=== PATIENT | female | born 1945 | race Caucasian/White ===

== ENCOUNTER 2022-10-30 08:40 | Emergency (ER) | payer OTHER ==
--- NOTE | 2022-10-30 09:02 | RAD REPORT ---
EXAM DESCRIPTION: CT - Head Brain Wo Cont - 10/30/2022 8:55 am CLINICAL HISTORY: Head injury status post fall COMPARISON: None TECHNIQUE: Computed axial tomography of the head was obtained. IV contrast was not requested. All CT scans are performed using dose optimization technique as appropriate and may include automated exposure control or mA/KV adjustment according to patient size. FINDINGS: Large area of cystic encephalomalacia right cerebrum No acute intracranial bleed. The ventricles are normal in caliber No extra-axial fluid collection is noted. Mild low-density areas within periventricular, deep and subcortical white matter likely represent isc hemic changes secondary to small vessel disease. Fluid within the sinuses/ mastoids is not seen. IMPRESSION: No acute intracranial abnormality is seen If patient's symptoms persist MRI of the brain would be recommended
--- NOTE | 2022-10-30 09:54 | RAD REPORT ---
EXAM DESCRIPTION: RAD - Pelvis - 10/30/2022 9:46 am CLINICAL HISTORY: Pelvic pain status post injury FINDINGS: No fracture or dislocation is seen. Osteoporosis Visualized left hip prosthesis is in good position If the patient continues to have symptoms to suggest an occult fracture then MRI would be recommended
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
[2022-10-30 10:56] VITALS: TEMP 97.9
[2022-10-30 10:59] VITALS: BP 120/77; O2SAT 97
== END 2022-10-30 10:51 | disposition home or self-care (01) ==
LOC: ER 08:40
DX: Z04.3 Encounter for examination and observation following other accident (principal); W18.30XA Fall on same level, unspecified, initial encounter; F03.90 Unspecified dementia, unspecified severity, without behavioral disturbance, psychotic disturbance, mood disturbance, and anxiety
CPT/HCPCS: 70450; 72170; 99283

== ENCOUNTER 2023-07-07 07:36 | Inpatient (IN) | payer OTHER ==
--- NOTE | 2023-07-07 08:15 | RAD REPORT ---
EXAM DESCRIPTION: CT - Head Brain Wo Cont - 07/07/2023 8:09 am CLINICAL HISTORY: New onset seizure;Seizure COMPARISON: Head Brain Wo Cont dated 10/30/2022 TECHNIQUE: All CT scans are performed using dose optimization technique as appropriate and may inclu de automated exposure control or mA/KV adjustment according to patient size. FINDINGS: No intracranial hemorrhage, hydrocephalus or extra-axial fluid collection.No areas of brai n edema or evidence of midline shift. Moderate to large remote right MCA territory infarct. This incl udes a remote right basal ganglia lacunar infarct. Cerebral atrophy. Chronic small vessel ischemic ch anges. The paranasal sinuses and mastoids are clear. The calvarium is intact. IMPRESSION: No acute intracranial abnormality. Remote moderate to large right MCA territory infarct .
[2023-07-07 09:59] LABS: Absolute Lymphocytes (CBC) 0.7 K/uL (0.7-4.9); Hematocrit 39.9 % (36.0-45.0); Lymphocytes % 3.6 % (15.3-44.8); MCV 89.9 fL (80-100); Platelets 303 thou/uL (152-406); RBC Red Blood Cell Count 4.44 M/uL (3.86-4.86)
[2023-07-07 10:30] LABS: Blood Morphology Comment NOT SEEN (NOT SEEN); Platelet Estimate ADEQ; White Blood Cell Scan OK (OK)
[2023-07-07 10:57] LABS: Protime INR 1.13
[2023-07-07 11:07] LABS: Potassium 3.4 mEq/L (3.5-5.1); Troponin High Sensitivity 17.5 pg/mL (<58.9)
[2023-07-07 11:24] LABS: Specific Gravity 1.019 (1.005-1.030); Urine Bacteria 20-50 /HPF (<20); Urine Bilirubin NEGATIVE (Negative); Urine Blood Negative (Negative); Urine Clarity Extremely Turbid (Clear); Urine Color Light-Yellow (Yellow); Urine Glucose NEGATIVE (Negative); Urine Mucus Slight /HPF (None Seen); Urine Protein TRACE (Negative); Urine Urobilinogen Normal (Normal); Urine pH 7.5 (5.0-7.0)
[2023-07-07 11:59] LABS: SARS-CoV-2 Antigen Rapid Res Negative (Negative)
[2023-07-07] MEDS ORDERED: CEFEPIME 1 GM/VIAL ONE (12:12)
[2023-07-07] MEDS ORDERED: NA CHLORIDE 0.9% 100 ML ONE (12:12)
--- NOTE | 2023-07-07 13:04 | ER ---
Nurse's Notes [facility] [place] Name: Leticia Stephen Age: 78 yrs Sex: Female : 1945 Arrival Date: 07/07/2023 Time: 07:36 Bed 8 Private MD: Diagnosis: Urosepsis, new onset seizure Presentation: 07/07 07:46 Chief complaint: EMS states: Pt from [facility], staff reports seizure like activity ph that lasted approx 10 min(?), no hx of seizures, pt awake and at baseline, according to staff, when EMS arrived, VSS, BGL 130s, no fever, pt oriented x 0 upon arrival to ER, awake, alert, and mumbling. Coronavirus screen: Vaccine status: Patient reports receiving the 2nd dose of the covid vaccine. Ebola Screen: No symptoms or risks identified at this time. Initial Sepsis Screen: Does the patient meet any 2 criteria? No. Patient's initial sepsis screen is negative. Does the patient have a suspected source of infection? No. Patient's initial sepsis screen is negative. Risk Assessment: Do you want to hurt yourself or someone else? Patient reports no desire to harm self or others. Onset of symptoms was July 07, 2023. 07:46 Method Of Arrival: EMS: [facility] 07:46 Acuity: HIPOLITO 2 ph Triage Assessment: 07:50 General: Appears in no apparent distress. Behavior is appropriate for age, restless. ph Pain: Unable to use pain scale. Patient is disoriented. Neuro: Level of Consciousness is awake, alert, confused, Oriented to none. Neuro: Seizure activity reported prior to arrival. Cardiovascular: Capillary refill < 3 seconds in bilateral fingers Patient's skin is warm and dry. Respiratory: Airway is patent Respiratory effort is even, unlabored. GI: No signs and/or symptoms were reported involving the gastrointestinal system. Derm: Skin is pink, warm \T\ dry. Musculoskeletal: Circulation, motion, and sensation intact. Range of motion: intact in all extremities. Historical: - Allergies: 07:50 No Known Allergies; ph - PMHx: 07:50 Anxiety; Bipolar disorder; Cerebrovascular accident; Chronic pain; Dementia; ph Hypertensive disorder; Hypothyroidism; metabolic encephalopathy; - Immunization history:: Adult Immunizations unknown. - Social history:: Smoking status: unknown. Screenin:[address] [facility] ED Fall Risk Assessment (Adult) History of falling in the last 3 months, ph including since admission Yes- fall prone (multiple falls) (3 pts). [facility] ED Fall Risk Assessment (Adult) Confusion or Disorientation Yes (5 pts) Intoxicated or Sedated No (0 pts) Impaired Gait Yes (1 pt) Mobility Assist Device Used Yes (1 pt) Altered Elimination Yes (1 pt) Score/Fall Risk Level 3 or more points = High Risk Oriented to surroundings, Maintained a safe environment, Hourly rounding (assess needs \T\ fall precautionary measures) done, Used ambulatory aids as needed (educated on \T\ assisted with). Abuse screen: Denies threats or abuse. Denies injuries from another. Nutritional screening: No deficits noted. Tuberculosis screening: No symptoms or risk factors identified. Assessment: 08:30 General: SEE TRIAGE ASSESSMENT. ph 09:30 Reassessment: Patient appears in no apparent distress at this time. No changes from ph previously documented assessment. pt awake and alert w/ stable VS, remains oriented to none. 11:00 Reassessment: Patient appears in no apparent distress at this time. No changes from ph previously documented assessment. 19:10 Reassessment: attempted to call reports to 2nd floor, will call back. km8 Vital Signs: 07:46 BP 130 / 58; Pulse 98; Resp 18; Temp 98.6; Pulse Ox 98% on R/A; ph 12:06 BP 138 / 89; Pulse 96; Resp 16 S; Pulse Ox 96% on R/A; kc6 13:00 BP 157 / 78; Pulse 96; Resp 18; Pulse Ox 96% on R/A; ph 14:00 BP 140 / 101; Pulse 97; Resp 18; Pulse Ox 95% on R/A; ph 15:00 BP 150 / 86; Pulse 95; Resp 18; Temp 99; Pulse Ox 95% on R/A; ph 19:11 BP 122 / 84; Pulse 90; Resp 18; Pulse Ox 95% ; vc1 ED Course: 07:44 Patient arrived in ED. mv 07:45 Cliff Alcaraz MD is Attending Physician. sp3 07:46 Ashley Parra, RN is Primary Nurse. ph 07:50 Triage completed. ph 07:51 Arm band placed on Patient placed in an exam room. ph 07:51 Patient has correct armband on for positive identification. Call light in reach. Side ph rails up X2. Pulse ox on. NIBP on. Door closed. Noise minimized. Warm blanket given. 08:09 CT Head Brain wo Cont In Process Unspecified. EDMS 08:45 Initial lab(s) drawn, by me, sent to lab. Inserted saline lock: 22 gauge in left hand, ph using aseptic technique. Blood collected. 08:46 EKG done, by ED staff, reviewed by Cliff Alcaraz MD. em1 09:45 Lab(s) recollected, by me, sent to lab. ph 13:03 Araseli Yan MD is Hospitalizing Provider. sp3 19:09 Provided Education on: admission process. km8 19:09 No provider procedures requiring assistance completed. Patient admitted, IV remains in km8 place. Administered Medications: 12:18 Drug: Cefepime IVPB 1 grams IVPB at 200 ml/hr once over 30 mins; (mix in NS 100 mL) kc6 Route: IVPB; Rate: 200 ml/hr; Infused Over: 30 mins; Site: left wrist; 12:48 Follow up: Response: No adverse reaction; IV Status: Completed infusion; IV Intake: as6 100ml Medication: 08:45 VIS not applicable for this client. ph Intake: 12:48 IV: 100ml; Total: 100ml. as6 Outcome: 13:03 Decision to Hospitalize by Provider. sp3 19:57 Admitted to Med/surg accompanied by tech, via stretcher, room 205, with chart, Report km8 called to ROWAN Chew 19:57 Condition: stable 19:57 Instructed on the need for admit, 20:22 Patient left the ED. km8 Signatures: Dispatcher [employer] Elia Dalton em1 Ashley Parra, RN RN ph Cliff Alcaraz MD MD sp3 Walt Albert RN RN as6 Ning Guevara RN RN 1 Reanna Ordaz RN RN kc6 Jodie Carter, ROWAN RN km8 Lula Hoang
--- NOTE | 2023-07-07 13:04 | EDPHYS ---
Physician Documentation [facility] Name: Leticia Stephen Age: 78 yrs Sex: Female : 1945 Arrival Date: 07/07/2023 Time: 07:36 Bed 8 Private MD: ED Physician Cliff Alcaraz HPI: 07/07 08:01 This 78 yrs old Female presents to ER via EMS with complaints of new seizure. sp3 08:01 78-year-old female with a history of prior CVA, bipolar disease, dementia, anxiety, sp3 chronic pain, hypertension now presents ED with chief complaint new onset seizure x 1 witnessed in her nursing care facility while in the [facility] area. Patient had 1 episode which lasted "several minutes" as per the report from EMS with subsequent postictal period. Patient had no direct trauma or fall or injury. EMS arrived to find patient in postictal state after which she retains her baseline mental status as reported by staff prior to EMS transport to the ED. Vital signs have been normal for EMS. No other activity reported. History, physical and ROS limited secondary to dementia.. Historical: - Allergies: 07:50 No Known Allergies; ph - PMHx: 07:50 Anxiety; Bipolar disorder; Cerebrovascular accident; Chronic pain; Dementia; ph Hypertensive disorder; Hypothyroidism; metabolic encephalopathy; - Immunization history:: Adult Immunizations unknown. - Social history:: Smoking status: unknown. ROS: 08:02 Constitutional: Negative for fever, chills, and weight loss, Eyes: Negative for injury, sp3 pain, redness, and discharge, Neck: Negative for injury, pain, and swelling, 08:06 Unable to obtain ROS due to altered mental status, baseline dementia, sp3 Exam: 08:06 Constitutional: This is a well developed, well nourished patient who is awake, alert, sp3 and in no acute distress. Head/Face: Normocephalic, atraumatic. Eyes: Pupils equal round and reactive to light, extra-ocular motions intact. Lids and lashes normal. Conjunctiva and sclera are non-icteric and not injected. Cornea within normal limits. Periorbital areas with no swelling, redness, or edema. Neck: Trachea midline, no thyromegaly or masses palpated, and no cervical lymphadenopathy. Supple, full range of motion without nuchal rigidity, or vertebral point tenderness. No Meningismus. Cardiovascular: Regular rate and rhythm with a normal S1 and S2. No gallops, murmurs, or rubs. Normal PMI, no JVD. No pulse deficits. Respiratory: Lungs have equal breath sounds bilaterally, clear to auscultation and percussion. No rales, rhonchi or wheezes noted. No increased work of breathing, no retractions or nasal flaring. Abdomen/GI: Soft, non-tender, with normal bowel sounds. No distension or tympany. No guarding or rebound. No evidence of tenderness throughout. 08:06 Neuro: Limited neurological exam. No facial droop noted and patient is moving all extremities and does not appear to have any unilateral weakness or other neurological abnormality. Memory, gait, speech limited assessment. Patient is able to articulate words however her dementia is evident. Vital signs are normal., 10:42 ECG was reviewed by the Attending Physician. EKG demonstrates normal sinus rhythm at 90 sp3 bpm with normal intervals, normal QRS, normal axis, nonspecific diffuse ST/changes without evidence of acute ischemia. Vital Signs: 07:46 BP 130 / 58; Pulse 98; Resp 18; Temp 98.6; Pulse Ox 98% on R/A; ph 12:06 BP 138 / 89; Pulse 96; Resp 16 S; Pulse Ox 96% on R/A; kc6 13:00 BP 157 / 78; Pulse 96; Resp 18; Pulse Ox 96% on R/A; ph 14:00 BP 140 / 101; Pulse 97; Resp 18; Pulse Ox 95% on R/A; ph 15:00 BP 150 / 86; Pulse 95; Resp 18; Temp 99; Pulse Ox 95% on R/A; ph 19:11 BP 122 / 84; Pulse 90; Resp 18; Pulse Ox 95% ; vc1 MDM: 07:45 Patient medically screened. sp3 08:08 Data reviewed: vital signs, nurses notes, long-term records, lab test result(s), sp3 EKG, radiologic studies. ED course: 78-year-old female with new onset seizure as reported by EMS as reported to them by long-term facility. We will obtain standard workup including CT scan of the head, laboratory values, EKG and fully assess patient. Probable 23-hour observation for neurological consultation and MRI however we will finalize that disposition once workup is complete and patient can be further evaluated and observed in the emergency department.. 13:02 ED course: Patient has 19,000 WBC count and UTI on labs. Left shift is also present on sp3 CBC. CT scan of the head is negative and no seizure activity has been seen in the ED. Remainder of labs are without significant abnormality. Cefepime has been given and we will safely admit patient to the hospital with further consultation with neurology as needed.. 07/07 07:47 Order name: Basic Metabolic Panel; Complete Time: 11:49 sp3 07/07 07:47 Order name: CBC with Diff; Complete Time: 10:33 sp3 07/07 07:47 Order name: High Sensitivity Troponin; Complete Time: 11:49 sp3 07/07 07:47 Order name: Protime (+inr); Complete Time: 11:49 sp3 07/07 07:47 Order name: Ptt, Activated; Complete Time: 11:49 sp3 07/07 10:31 Order name: CBC Smear Scan; Complete Time: 10:33 EDMS 07/07 10:33 Order name: Flu; Complete Time: 12:26 sp3 07/07 10:33 Order name: SARS RAPID; Complete Time: 12:03 sp3 07/07 10:33 Order name: UAM; Complete Time: 11:49 sp3 07/07 11:27 Order name: Urine Culture EDMS 07/07 13:14 Order name: Basic Metabolic Panel EDMS 07/07 13:14 Order name: Basic Metabolic Panel EDMS 07/07 13:14 Order name: Basic Metabolic Panel EDMS 07/07 13:14 Order name: Basic Metabolic Panel EDMS 07/07 13:14 Order name: Basic Metabolic Panel EDMS 07/07 13:14 Order name: CBC with Automated Diff EDMS 07/07 13:14 Order name: CBC with Automated Diff EDMS 07/07 13:14 Order name: CBC with Automated Diff EDMS 07/07 13:14 Order name: CBC with Automated Diff EDMS 07/07 13:14 Order name: CBC with Automated Diff EDMS 07/07 13:14 Order name: Magnesium EDMS 07/07 13:14 Order name: Magnesium EDMS 07/07 13:14 Order name: Magnesium EDMS 07/07 13:14 Order name: Magnesium EDMS 07/07 13:14 Order name: Magnesium EDMS 07/07 07:47 Order name: CT Head Brain wo Cont; Complete Time: 08:17 sp3 07/07 07:47 Order name: EKG; Complete Time: 07:47 sp3 07/07 13:18 Order name: CONS Physician Consult [facility] 07/07 07:47 Order name: Cardiac monitoring; Complete Time: 08:45 sp3 07/07 07:47 Order name: EKG - Nurse/Tech; Complete Time: 08:45 3 07/07 07:47 Order name: IV Saline Lock; Complete Time: 08:45 sp3 07/07 07:47 Order name: Labs collected and sent; Complete Time: 08:45 sp3 07/07 07:47 Order name: NPO; Complete Time: 07:53 3 07/07 07:47 Order name: O2 Per Protocol; Complete Time: 07:53 3 07/07 07:47 Order name: O2 Sat Monitoring; Complete Time: 07:53 3 07/07 07:47 Order name: Seizure Precautions; Complete Time: 08:45 3 07/07 08:57 Order name: Labs - recollect needed: recollect blue green and lavender top; Complete bd Time: 10:00 07/07 10:06 Order name: Labs - recollect needed: recollect blue and green top; Complete Time: 11:41 bd 07/07 10:33 Order name: Cath: cath ua; Complete Time: 11:41 sp3 Administered Medications: 12:18 Drug: Cefepime IVPB 1 grams IVPB at 200 ml/hr once over 30 mins; (mix in NS 100 mL) kc6 Route: IVPB; Rate: 200 ml/hr; Infused Over: 30 mins; Site: left wrist; 12:48 Follow up: Response: No adverse reaction; IV Status: Completed infusion; IV Intake: as6 100ml Disposition Summary: 07/07/23 13:03 Hospitalization Ordered Notes: Hospitalization Status: Inpatient Admission sp3 Provider: Araseli Yan Condition: Stable sp3 Problem: new sp3 Symptoms: have worsened sp3 Bed/Room Type: Standard sp3 Location: Telemetry/MedSurg (Inpatient)(07/07/23 19:07) cg Room Assignment: [facility](07/07/23 19:07) cg Diagnosis - Urosepsis, new onset seizure sp3 Forms: - Medication Reconciliation Form sp3 - SBAR form sp3 - Leadership Thank You Letter sp3 Signatures: Dispatcher [employer] EDWendy Walden Patricia, RN RN Estefany Mcwilliams RN RN cg Cliff Alcaraz MD MD sp3 Reanna Ordaz RN RN kc6 Walt Albert RN as6 Corrections: (The following items were deleted from the chart) 13:15 13:03 Telemetry/MedSurg (Inpatient) sp3 bd 13:15 13:03 sp3 bd 19:07 13:15 [facility] ER HOLD bd cg 19: 13:15 ERHOLD- bd cg
[2023-07-07] MEDS ORDERED: ACETAMINOPHEN 500 MG TAB PO PRN (13:10)
[2023-07-07] MEDS ORDERED: ONDANSETRON 4 MG/2 ML VIAL IV PRN (13:10)
--- NOTE | 2023-07-07 13:15 | P.HP ---
Certification for Inpatient Patient admitted to: Inpatient With expected LOS: <2 Midnights Patient will require the following post-hospital care: None Practitioner: I am a practitioner with admitting privileges, knowledge of patient current condition, hospital course, and medical plan of care. Services: Services provided to patient in accordance with Admission requirements found in Title 42 Section 412.3 of the Code of Federal Regulations Patient History Date of Service: 07/07/23 History of Present Illness: 78-year-old female with a past medical history anxiety, Bipolar disorder, Cerebrovascular accident, Chronic pain, Dementia, Hypertensive disorder; Hypothyroidism; metabolic encephalopathy presents to the emergency room from [facility] with reported seizure like activity. Seizure reportedly happened while patient was in the cafeteria in the dining room. Several minutes of seizure-like activity and was postictal afterwards. EMS was called, EMS repo rts mental status is patient's baseline. No reported fall, or recent injury. patient has history of Dementia, AOx1. HPI limited due to dementia. plan to admit for urosepsis, seizure-like activity, EKG ECG was reviewed by the Attending Physician. EKG demonstrates normal sinus rhythm at 90 bpm with normal intervals, normal QRS, normal axis, nonspecific diffuse ST/changes without evidence of acute ischemia. BP 130 / 58; Pulse 98; Resp 18; Temp 98.6; Pulse Ox 98% on R/A; laboratory evaluation 19,000 WBC count and UTI on labs. CT scan of the head is negative and no seizure activity has been seen in the ED. Remainder of labs are without significant abnormality. Cefepime has been given and we will safely admit patient to the hospital with further consultation with neurology as needed.. - Past Medical/Surgical History -: Dementia -: History of CVA -: Anxiety -: Bipolar -: Hypothyroidism -: Metabolic encephalopathy Psychosocial/ Personal History: Resides at [facility] - Social History Smoking Status: Unknown if ever smoked Review of Systems per HPI Physical Examination - Physical Exam General: Alert, In no apparent distress, Oriented x1 HEENT: Atraumatic, Normocephalic Neck: Supple, 2+ carotid pulse no bruit Respiratory: Clear to auscultation bilaterally, Normal air movement Cardiovascular: No edema, Normal pulses Capillary refill: <2 Seconds Gastrointestinal: Normal bowel sounds, Soft and benign Musculoskeletal: No clubbing, No swelling Integumentary: No rashes, No breakdown Neurological: Normal speech, Normal affect, Dementia - Studies Laboratory Data (last 24 hrs) 07/07/23 07/07/23 07/07/23 10:39 10:39 09:45 WBC 19.70 H Hgb 13.6 Hct 39.9 Plt Count 303 PT 12.4 INR 1.13 APTT 26.8 Sodium 138 Potassium 3.4 L BUN 9 Creatinine 0.62 Glucose 105 Microbiology Data (last 24 hrs): 07/07/23 11:10 Nasopharnyx Influenza Type A Antigen Screen - Final 07/07/23 11:10 Nasopharnyx Influenza Type B Antigen Screen - Final Assessment and Plan - Plan Assessment plan Urosepsis Seizure-like activity Neurology to consult to evaluate for seizure Telemetry, IV antibiotics cefepime Trend WBCs Urine culture ECG was reviewed by the Attending Physician. EKG demonstrates normal sinus rhythm at 90 bpm with normal intervals, normal QRS, normal axis, nonspecific diffuse ST/changes without evidence of acute ischemia. BP 130 / 58; Pulse 98; Resp 18; Temp 98.6; Pulse Ox 98% on R/A; laboratory evaluation 19,000 WBC count and UTI on labs. CT scan of the head is negative and no seizure activity has been seen in the ED. Remainder of labs are without significant abnormality. Speech eval for swallow Neuro eval to evaluate for seizure-like anxiety Bipolar disorder Cerebrovascular accident Chronic pain Dementia Hypertensive disorder Hypothyroidism HX metabolic encephalopathy Resume appropriate home meds Full code DVT Lovenox Diet clear liquids advance as tolerated Discharge Plan: Alf Plan to discharge in: 48 Hours - Advance Directives Does patient have a Living Will: No Does patient have a Durable POA for Healthcare: No - Code Status/Comfort Care Code Status: Full Code Critical Care: No Time Spent Managing Pts Care (In Minutes): 55
[2023-07-07] MEDS: NA CHLORIDE 0.9% 1,000 ML IV SCH ×2 (14:00→21:54)
--- NOTE | 2023-07-07 15:03 | P.DS ---
Admission Date: 07/07/23 Discharge Date: 07/09/23 Disposition: TRANSFER TO [facility] Discharge Condition: FAIR Brief History of Present Illness: 78-year-old female with a past medical history anxiety, Bipolar disorder, Cerebrovascular accident, Chronic pain, Dementia, Hypertensive disorder; Hypothyroidism; metabolic encephalopathy presents to the emergency room from [facility] with reported seizure like activity. Seizure reportedly happened while patient was in the cafeteria in the dining room. Several minutes of seizure-like activity and was postictal afterwards. EMS was called, EMS reports mental status is patient's baseline. No reported fall, or recent injury. patient has history of Dementia, AOx1. HPI limited due to dementia. plan to admit for urosepsis, seizure-like activity, EKG ECG was reviewed by the Attending Physician. EKG demonstrates normal sinus rhythm at 90 bpm with normal intervals, normal QRS, normal axis, nonspecific diffuse ST/changes without evidence of acute ischemia. BP 130 / 58; Pulse 98; Resp 18; Temp 98.6; Pulse Ox 98% on R/A; laboratory evaluation 19,000 WBC count and UTI on labs. CT scan of the head is negative and no seizure activity has been seen in the ED. Remainder of labs are without significant abnormality. Cefepime has been given and we will safely admit patient to the hospital with further consultation with neurology as needed. - Physical Exam General: Alert, In no apparent distress, Oriented x1, Obese HEENT: Atraumatic, Normocephalic, PERRLA Neck: Supple, 2+ carotid pulse no bruit, JVD not distended Respiratory: Clear to auscultation bilaterally, Normal air movement Cardiovascular: Normal pulses, Regular rate/rhythm Gastrointestinal: Normal bowel sounds, Soft and benign Musculoskeletal: Other (left knee pain, worse ROM, moderate generalized weakness) Integumentary: No rashes, No breakdown Neurological: Normal speech, Normal strength at 5/5 x4 extr,confused Hospital Course: 78-year-old female patient presented with seiziure like activity. Was noted to have possible urosepsis, acute. Was treated with IV antibiotics cefepime. Condition improved with IV antibiotics, WBCs trended down to normal. Stable for discharge to [facility] with follow-up appointment with primary care physician. CT HeadIMPRESSION: No acute intracranial abnormality. Remote moderate to large right MCA territory infarct. UA + UTI, Lab WBC 19.0, repeated 8.90 Hypokalemia replace K+ Speech evaluation Pt.'s diet can be advanced to minced and moist along with thin liquid via cup only. No overt s/s of aspiration. ST will follow up for tolerance of recommended diet. PROBLEM: Urosepsis, Seizure disorder will treat with Keppra 500 p.o. twice daily for 6-month patient needs to follow-up with neurology after discharge Hypokalemia replace K+ prn WBCs 19.70, repeat 8.90, treated with cefepime 1 g every 12 x 3 days Episode of tachycardia treated with Lopressor 50 mg p.o. x 1 Altered mental status History of dementia Continue home medicines as previously prescribed GOAL: Clear understanding of disease process INSTRUCTIONS: Physician Discharge Instructions: -DC IV and DC home -Follow-up with PCP in 1 to 2 weeks -Please call Dr. Yan at [phone] if any questions regarding hospital stay -Please call nursing station at [phone] if any nursing or medication questions -Return to the emergency room if symptoms worsen Diet: ADA, low sodium Activity: Fall precautions DME: Date Ordered: Name of Company: [employer] Services Needed: None Date or Referral: IMMUNIZATION Influenza Vaccine Indicated: Influenza Vaccine Given: Date Given: Pneumonia Vaccine Indicated: Pneumonia Vaccine Given: Date Given: Laboratory Data at Discharge: WBC 19.70 thou/uL (4.3-10.9) H 07/07/23 09:45 Hgb 13.6 g/dL (12.0-15.0) 07/07/23 09:45 Hct 39.9 % (36.0-45.0) 07/07/23 09:45 Plt Count 303 thou/uL (152-406) 07/07/23 09:45 PT 12.4 SECONDS (9.5-12.5) 07/07/23 10:39 INR 1.13 07/07/23 10:39 APTT 26.8 SECONDS (24.3-36.9) 07/07/23 10:39 Sodium 138 mEq/L (136-145) 07/07/23 10:39 Potassium 3.4 mEq/L (3.5-5.1) L 07/07/23 10:39 BUN 9 mg/dL (7-18) 07/07/23 10:39 Creatinine 0.62 mg/dL (0.55-1.02) 07/07/23 10:39 Glucose 105 mg/dL (74-106) 07/07/23 10:39 Home Medications: Acetaminophen [Tylenol -Tablet] 650 mg PO Q6HP PRN 07/08/23 Amlodipine [Norvasc*] 2.5 mg PO BEDTIME 07/08/23 Amlodipine [Norvasc*] 5 mg PO DAILY 07/08/23 Apixaban [Eliquis *] 5 mg PO BID 07/08/23 Buspirone HCl [Buspar*] 15 mg PO TID 07/08/23 Cranberry Fruit Extract [Cranberry] 425 mg PO BID 07/08/23 Docusate [Colace Cap*] 100 mg PO BID 07/08/23 Levothyroxine Sodium 25 mcg PO DAILY 07/08/23 Lisinopril [Zestril] 5 mg PO DAILY 07/08/23 Mirtazapine [Remeron*] 7.5 mg PO BEDTIME 07/08/23 OLANZapine [Zyprexa*] 5 mg PO BEDTIME 07/08/23 Potassium Chloride 10 meq PO DAILY 07/08/23 Quetiapine [Seroquel*] 50 mg PO BID 07/08/23 Physician Discharge Instructions: 78-year-old female patient presented with seiziure like activity. Was noted to have possible urosepsis, acute. Was treated with IV antibiotics cefepime. Condition improved with IV antibiotics, WBCs trended down to normal. Stable for discharge to [facility] with follow-up appointment with primary care physician. CT HeadIMPRESSION: No acute intracranial abnormality. Remote moderate to large right MCA territory infarct. UA + UTI, Lab WBC 19.0, repeated 8.90 Hypokalemia replace K+ Speech evaluation Pt.'s diet can be advanced to minced and moist along with thin liquid via cup only. No overt s/s of aspiration. ST will follow up for tolerance of recommended diet. PROBLEM: Urosepsis, Hypokalemia replace K+ prn WBCs 19.70, repeat 8.90, treated with cefepime 1 g every 12 x 3 days Seizure precautions treated with Keppra 500 mg IV every 12 (no reported or witnessed seizure during inpatient stay) Episode of tachycardia treated with Lopressor 50 mg p.o. x 1 Altered mental status History of dementia Finished 3 days of IV antibiotics for UTI Continue home medicines as previously prescribed GOAL: Clear understanding of disease process INSTRUCTIONS: Physician Discharge Instructions: -DC IV and DC home -Follow-up with PCP in 1 to 2 weeks -Please call Dr. Yan at [phone] if any questions regarding hospital stay -Please call nursing station at [phone] if any nursing or medication questions -Return to the emergency room if symptoms worsen Diet: ADA, low sodium Activity: Fall precautions DME: Date Ordered: Name of Company: [employer] Services Needed: None Date or Referral: IMMUNIZATION Influenza Vaccine Indicated: Influenza Vaccine Given: Date Given: Pneumonia Vaccine Indicated: Pneumonia Vaccine Given: Date Given: Diet: AHA Activity: Fall precautions Followup: NONE,NONE [Primary Care Provider] - Physician Review: Patient Assessed, Agree with Above Assessment and Plan Time spent managing pt's care (in minutes): 55
[2023-07-07] MEDS ORDERED: NA CHLORIDE 0.9% 1,000 ML ONE (16:08)
[2023-07-07 18:03] VITALS: BMI 29.8
[2023-07-07 21:19] VITALS: O2SAT 95
[2023-07-07] MEDS: CEFEPIME 1 GM in NA CHLORIDE 0.9% 100 ML IV SCH (21:55)
[2023-07-08 05:55] LABS: Absolute Lymphocytes (CBC) 0.9 K/uL (0.7-4.9); Lymphocytes % 9.8 % (15.3-44.8); MCV 92.6 fL (80-100); MPV 9.3 fL (7.6-11.3); Platelets 236 thou/uL (152-406); RBC Red Blood Cell Count 3.77 M/uL (3.86-4.86)
[2023-07-08 06:14] LABS: Magnesium 2.1 mg/dL (1.6-2.4); Potassium 3.1 mEq/L (3.5-5.1)
--- NOTE | 2023-07-08 08:49 | P.PN ---
Subjective Date of Service: 07/08/23 HPI limited due to dementia, no reported seizures - Physical Exam General: Alert, In no apparent distress, Oriented x1 HEENT: Atraumatic, Normocephalic Neck: Supple, 2+ carotid pulse no bruit Respiratory: Clear to auscultation bilaterally, Normal air movement Cardiovascular: No edema, Normal pulses Capillary refill: <2 Seconds Gastrointestinal: Normal bowel sounds, Soft and benign Musculoskeletal: No clubbing, No swelling Integumentary: No rashes, No breakdown Neurological: Normal speech, Normal affect, Dementia Review of Systems per HPI Physical Examination - Vital Signs Temperature: 97.6 F Blood Pressure: 132/53 Pulse: 68 Respirations: 17 Pulse Ox (%): 93 - Studies Laboratory Data (last 24 hrs) 07/07/23 07/07/23 07/07/23 10:39 10:39 09:45 WBC 19.70 H Hgb 13.6 Hct 39.9 Plt Count 303 PT 12.4 INR 1.13 APTT 26.8 Sodium 138 Potassium 3.4 L BUN 9 Creatinine 0.62 Glucose 105 Microbiology Data (last 24 hrs): 07/07/23 11:10 Nasopharnyx Influenza Type A Antigen Screen - Final 07/07/23 11:10 Nasopharnyx Influenza Type B Antigen Screen - Final Assessment And Plan - Plan Assessment plan Urosepsis improving Seizure-like activity resolved, Neurology to consult to evaluate for seizure Telemetry, IV antibiotics cefepime Speech eval for swallow Neuro eval to evaluate for seizure-like Leukocytosis improving trend WBCs 19.70-8.90 Urine culture ECG was reviewed by the Attending Physician. EKG demonstrates normal sinus rhythm at 90 bpm with normal intervals, normal QRS, normal axis, nonspecific diffuse ST/changes without evidence of acute ischemia. BP 130 / 58; Pulse 98; Resp 18; Temp 98.6; Pulse Ox 98% on R/A; laboratory evaluation 19,000 WBC count and UTI on labs. CT scan of the head is negative and no seizure activity has been seen in the ED. Remainder of labs are without significant abnormality. Hypokalemia trend electroylytes, replace prn anxiety Bipolar disorder Cerebrovascular accident Chronic pain Dementia Hypertensive disorder Hypothyroidism HX metabolic encephalopathy Resume appropriate home meds Full code DVT Lovenox Diet clear liquids advance as tolerated Disposition [facility]. Pt. has a history of dementia Discharge Plan: Skilled Nursing - Code Status/Comfort Care Code Status: Full Code Critical Care: No Time Spent Managing PTS Care (In Minutes): 35
[2023-07-08] MEDS ORDERED: POTASSIUM CL SA 10 MEQ TAB PO ONE (09:00)
[2023-07-08] MEDS: CEFEPIME 1 GM in NA CHLORIDE 0.9% 100 ML IV SCH ×2 (09:14→21:56)
[2023-07-08] MEDS: levETIRAcetam 500 MG in NA CHLORIDE 0.9% 100 ML IV SCH (17:19)
--- NOTE | 2023-07-08 17:26 | EKG ---
Test Date: 2023-07-07 Test Time: 08:44:14 Esthetician/Owner: [employer] MEASUREMENT RESULTS: Intervals: Rate: 89 NM: 150 QRSD: 64 QT: 348 QTc: 423 [place]: P: 62 NM: 150 QRS: 15 T: 23 INTERPRETIVE STATEMENTS: Normal sinus rhythm Normal ECG No previous ECG available for comparison Electronically Signed On 07-08-23 17:23:45 GROUND WATER TECHNICIAN by Jose Raul Lopez
[2023-07-08] MEDS ORDERED: METOPROLOL TAR 50 MG TAB PO ONE (22:50)
[2023-07-09] MEDS: levETIRAcetam 500 MG in NA CHLORIDE 0.9% 100 ML IV SCH (03:46)
[2023-07-09 06:08] LABS: Absolute Lymphocytes (CBC) 1.1 K/uL (0.7-4.9); Hematocrit 40.3 % (36.0-45.0); Lymphocytes % 11.8 % (15.3-44.8); MCV 91.4 fL (80-100); MPV 8.9 fL (7.6-11.3); Platelets 217 thou/uL (152-406); RBC Red Blood Cell Count 4.41 M/uL (3.86-4.86)
[2023-07-09 06:35] LABS: Magnesium 2.3 mg/dL (1.6-2.4); Potassium 3.5 mEq/L (3.5-5.1)
--- NOTE | 2023-07-09 07:57 | P.PN ---
Subjective Date of Service: 07/09/23 HPI limited due to dementia, no reported seizures, diet advanced to minced meat - Physical Exam General: Alert, In no apparent distress, Oriented x1 HEENT: Atraumatic, Normocephalic Neck: Supple, 2+ carotid pulse no bruit Respiratory: Clear to auscultation bilaterally, Normal air movement Cardiovascular: No edema, Normal pulses Capillary refill: <2 Seconds Gastrointestinal: Normal bowel sounds, Soft and benign Musculoskeletal: No clubbing, No swelling Integumentary: No rashes, No breakdown Neurological: Normal speech, Normal affect, Dementia Review of Systems per HPI Physical Examination - Vital Signs Temperature: 98.3 F Blood Pressure: 145/68 Pulse: 60 Respirations: 16 Pulse Ox (%): 92 - Studies Microbiology Data (last 24 hrs): 07/07/23 11:05 Clean Catch Urine Arnold Count - Final >100,000 CFU/ML. 07/07/23 11:05 Clean Catch Urine - Final Escherichia Coli Assessment And Plan - Plan Assessment plan Urosepsis improving Seizure-like activity resolved, Neurology to consult to evaluate for seizure Telemetry, IV antibiotics cefepime Speech eval for swallow Neuro eval to evaluate for seizure-like Sinus tachycardia Metoprolol given p.o. x 1 Leukocytosis improving trend WBCs 19.70-8.90 Urine culture ECG was reviewed by the Attending Physician. EKG demonstrates normal sinus rhythm at 90 bpm with normal intervals, normal QRS, normal axis, nonspecific diffuse ST/changes without evidence of acute ischemia. BP 130 / 58; Pulse 98; Resp 18; Temp 98.6; Pulse Ox 98% on R/A; laboratory evaluation 19,000 WBC count and UTI on labs. CT scan of the head is negative and no seizure activity has been seen in the ED. Remainder of labs are without significant abnormality. Hypokalemia trend electroylytes, replace prn anxiety Bipolar disorder Cerebrovascular accident Chronic pain Dementia Hypertensive disorder Hypothyroidism HX metabolic encephalopathy Resume appropriate home meds Full code DVT Lovenox Diet clear liquids advance as tolerated Disposition [facility]. Pt. has a history of dementia Discharge Plan: [facility] - Code Status/Comfort Care Code Status: Full Code Critical Care: No Time Spent Managing PTS Care (In Minutes): 55
--- NOTE | 2023-07-09 11:09 | RAD REPORT ---
EXAM DESCRIPTION: [place] Single View07/09/2023 10:20 am CLINICAL HISTORY: pneumonia COMPARISON: No comparisons TECHNIQUE: Portable AP view of the chest. FINDINGS: Patient rotation limits evaluation. Decreased inspiratory effort. Mild central interstitia l prominence, however no focal consolidation appreciated. No pneumothorax or effusion. The cardiomed iastinal contours are unremarkable. IMPRESSION: Mild central interstitial prominence allowing for limitations mentioned above, suggestiv e of central congestion/CHF.
[2023-07-09] MEDS: CEFEPIME 1 GM in NA CHLORIDE 0.9% 100 ML IV SCH (11:20)
[2023-07-09 12:42] VITALS: BP 136/67; TEMP 97.9
== END 2023-07-09 14:20 | DRG 101 ==
LOC: ER 07:36 → ERHOLD 13:09 → 2ND 19:49
PROVIDERS: ADMIT Hospitalist; ATTEND Hospitalist
DX: G40.909 Epilepsy, unspecified, not intractable, without status epilepticus (principal); N39.0 Urinary tract infection, site not specified; F03.94 Unspecified dementia, unspecified severity, with anxiety; I10 Essential (primary) hypertension; E03.9 Hypothyroidism, unspecified; E87.6 Hypokalemia; G89.29 Other chronic pain; F31.9 Bipolar disorder, unspecified; R00.0 Tachycardia, unspecified; Z79.01 Long term (current) use of anticoagulants; Z11.52 Encounter for screening for COVID-19; Z86.73 Personal history of transient ischemic attack (TIA), and cerebral infarction without residual deficits; Z79.890 Hormone replacement therapy; Z79.899 Other long term (current) drug therapy
CPT/HCPCS: 36415; 70450; 71045; 80048; 81001; 83735; 84484; 85025; 85610; 85730; 87077; 87086; 87088; 87186; 87804; 87811; 92526; 92610; 93005; 96365; 99285; J0692; J1953; J7030